=== PATIENT | female | born 1965 | race Hispanic/Latino ===

== ENCOUNTER 2023-06-27 08:23 | Outpatient (CLI) | payer BC | END 2023-06-27 08:24 | disposition home or self-care (01) | LOC: BICMAMMO 08:23 | PROVIDERS: ATTEND Nurse Practitioner Family | DX: Z13.820 Encounter for screening for osteoporosis (principal); Z78.0 Asymptomatic menopausal state | CPT/HCPCS: 77080 ==

== ENCOUNTER 2023-11-20 07:52 | Outpatient (CLI) | payer BC | END 2023-11-20 07:53 | disposition home or self-care (01) | LOC: SCSMRI 07:52 | PROVIDERS: ATTEND Psychiatry & Neurology Neurology | DX: M48.061 Spinal stenosis, lumbar region without neurogenic claudication (principal); M25.552 Pain in left hip; M47.816 Spondylosis without myelopathy or radiculopathy, lumbar region | CPT/HCPCS: 72158 ==

== ENCOUNTER 2023-12-01 13:42 | Outpatient (CLI) | payer BC | END 2023-12-01 13:43 | disposition home or self-care (01) | LOC: RAD 13:42 | PROVIDERS: ATTEND Internal Medicine | DX: R06.00 Dyspnea, unspecified (principal) | CPT/HCPCS: 71046 ==

== ENCOUNTER 2024-04-19 11:37 | Outpatient (CLI) | payer BC | END 2024-04-19 11:38 | disposition home or self-care (01) | LOC: BICRAD 11:37 | PROVIDERS: ATTEND Nurse Practitioner Family | DX: R05.3 Chronic cough (principal) | CPT/HCPCS: 71046 ==

== ENCOUNTER 2024-05-26 07:41 | Outpatient (CLI) | payer BC | END 2024-05-26 07:42 | disposition home or self-care (01) | LOC: BICCT 07:41 | PROVIDERS: ATTEND Internal Medicine | DX: R91.1 Solitary pulmonary nodule (principal) | CPT/HCPCS: 71250 ==

== ENCOUNTER 2025-08-05 08:19 | Outpatient (CLI) | payer BC | END 2025-08-05 08:20 | disposition home or self-care (01) | LOC: ULT 08:19 | PROVIDERS: ATTEND Nurse Practitioner Family | DX: R74.8 Abnormal levels of other serum enzymes (principal); Z90.49 Acquired absence of other specified parts of digestive tract | CPT/HCPCS: 76705 ==